=== PATIENT | female | born 1945 | race Caucasian/White ===

== ENCOUNTER → 2021-10-08 | Outpatient (CLI) | payer MEDICARE | END | disposition home or self-care (01) | LOC: RAH 10:49 | PROVIDERS: ATTEND Internal Medicine | DX: N64.4 Mastodynia (principal); M79.629 Pain in unspecified upper arm | CPT/HCPCS: 77066 ==

== ENCOUNTER 2025-03-15 11:02 | Emergency (ER) | payer MEDICARE ==
[~2025-03-15] VITALS: Ht 160 cm; Wt 52.6 kg
--- NOTE | 2025-03-15 11:21 | ERN ---
ED Note History of Present Illness Stated Complaint: LACERATION Chief Complaint: Laceration/Avulsion Time Seen by MD: 11:04 Dictation: PATIENT IS AN 79-YEAR-OLD FEMALE COMING IN TO THE EMERGENCY ROOM WITH HER WITH COMPLAINTS OF A SLIP FALL IN HER HOUSE. SHE STATES THEY HAVE A DOG INSIDE AND SHE SLIPPED ON URINE LANDED ON HER BILATERAL ELBOWS. ELBOW JUST HAS A SMALL ABRASION, RIGHT ELBOW HAS A LACERATION TO THE PROXIMAL FOREARM WITH THE ELBOW PAIN. NEUROVASCULAR CMS INTACT. SHE IS NOT ON ANY BLOOD THINNERS NO HEAD INJURY NO SPINE PAIN. STATES HER LAST TETANUS SHOT WAS LAST YEAR AFTER SHE HAD A FALL IN [place]. Allergies: Coded Allergies: No Known Drug Allergies (Unverified Allergy, Unknown, 03/15/25) Past Medical History Past Medical History: Hypertension Surgical History: Hysterectomy, Other History: Not Applicable RN Note Reviewed/Agreed w/PFSH: Yes Review of System Dictation CONSTITUTIONAL: NEGATIVE EXCEPT FOR HPI HEAD/FACE: NEGATIVE EXCEPT FOR HPI EENT: NEGATIVE EXCEPT FOR HPI RESPIRATORY: NEGATIVE EXCEPT FOR HPI GASTROINTESTINAL/ABDOMINAL: NEGATIVE EXCEPT FOR HPI GENITOURINARY: NEGATIVE EXCEPT FOR HPI MUSCULOSKELETAL: NEGATIVE EXCEPT FOR HPI RIGHT PROXIMAL FOREARM LACERATION WITH PAIN TO ELBOW. LEFT ELBOW ABRASION INTEGUMENTARY: NEGATIVE EXCEPT FOR HPI NEUROLOGICAL/PSYCH: NEGATIVE EXCEPT FOR HPI HEMATOLOGIC/LYMPHATIC: NEGATIVE EXCEPT FOR HPI ALL SYSTEMS NEGATIVE, EXCEPT NOTED ABOVE. 13 POINT REVIEW OF SYSTEMS ASSESSED AND ALL NEGATIVE EXCEPT FOR ABOVE. Initial Vital Sign VS Vital Signs Date Time Temp Pulse Resp B/P (MAP) Pulse Ox O2 Delivery O2 Flow Rate FiO2 03/15/25 11:05 97.5 85 16 176/93 99 0 03/15/25 11:09 Room Air* 21 Physical Exam Dictation VITAL SIGNS REVIEWED GENERAL APPEARANCE: ALERT, ORIENTED X 3, MODERATE ACUTE DISTRESS, WELL DEVELOPED, NOURISHED. HEAD AND FACE: NON-TRAUMATIC. NO HEAD INJURY EYES: PERRL, PINK CONJUNCTIVAS, EYELID NO TRAUMA, ANTERIOR CHAMBER WITH ARCUS SENILIS. EARS: PINNAS INTACT AND NO SIGNS OF TRAUMA OR ERYTHEMA EAR CANALS CLEAR AND NO DISCHARGE TM NO ERYTHEMA NOSE: NO DISCHARGE, NO BLEEDING. OROPHARYNX: MOUTH NORMAL, TONGUE PINK, PHARYNX CLEAR,NO ERYTHEMA, TONSILS NO EXUDATES, NO ABSCESSES NOTED, MUCOUS MEMBRANE MOIST NECK: SUPPLE, NON-TENDER, NO THYROMEGALY, NO MASSES, NO JVD, NO BRUITS BREAST:DEFERRED CHEST:NO TENDERNESS, NO CREPITUS, NO PARADOXICAL MOVEMENT, NO RETRACTIONS LUNGS:CLEAR, WELL-VENTILATED, SYMMETRIC, NO RALES, NO WHEEZING, NO RHONCHI, NO STRIDOR, GOOD BREATH SOUNDS BILATERALLY HEART: REGULAR RATE, REGULAR RHYTHM, NO MURMUR, NO GALLOPS VASCULAR: NO PERIPHERAL EDEMA, ABDOMEN: SOFT, POSITIVE BOWEL SOUNDS, NONDISTENDED, NO GUARDING, NONTENDER, NO REBOUND, NO MASSES NO HEPATOMEGALY, NO SPLENOMEGALY, NO LEMOS'S SIGN, NO HERNIAS. RECTAL: DEFERRED GENITAL: DEFERRED NEUROLOGICAL: NORMAL SPEECH, MOTOR FUNCTION INTACT, SENSORY FUNCTION INTACT MUSCULOSKELETAL: NECK NONTENDER, FULL RANGE OF MOTION, BACK NONTENDER, FULL RANGE OF MOTION, SPINE PAIN EXTREMITIES: TENDERNESS WITH FULL LOC TO RIGHT ELBOW APPROXIMATELY 5 CM LACERATION TO PROXIMAL FOREARM. ABRASION TO LEFT ELBOW WITH FULL RANGE OF MOTION SKIN: COLOR PINK, DRY, NO TURGOR, NO RASH, NO LACERATIONS, NO ABRASIONS, NO CONTUSIONS. LYMPHATIC: DEFERRED Results (Laboratory/Radiology) Laboratory/Radiology RIGHT ELBOW X-RAY NEGATIVE FOR FRACTURE Labs Reviewed?: Yes ED Course ED Course Orders Procedure Category Date Status Time Neomy PHA 03/15/25 Complete Sulf/Bacitra/Polymyxin 11:30 Tetanus,Diphtheria PHA 03/15/25 Complete Tox [Adult] (Diphther 11:30 Acetaminophen With PHA 03/15/25 Complete Codeine (Tylenol-Code 11:30 Lidocaine Hcl 1% 20ml PHA 03/15/25 Complete Vial (Lidocaine Hc 11:30 Elbow Comp 3+Vws Rt RAD 03/15/25 Resulted 11:16 Current Medications Medications (Trade) Dose Ordered Sig/Obdulia Route PRN Reason Start Time Stop Time Status Last Admin Dose Admin Acetaminophen/ Codeine Phosphate (TYLenol-coDEINE TAB) 2 tab ONCE ONCE PO 03/15/25 11:30 03/15/25 11:33 DC 03/15/25 12:45 Lidocaine HCl (Lidocaine HCl 1% 20ml Vial) 10 ml ONCE INJ 03/15/25 11:30 03/15/25 12:00 DC 03/15/25 12:40 Neomycin/ Polymyxin/ Bacitracin (Triple Antibiotic Ointment) 1 appl ONCE ONCE TP 03/15/25 11:30 03/15/25 11:33 DC 03/15/25 12:40 Tetanus/ Diphtheria Toxoids Adsorbed (DiphthERIA-teTANUS TOXOID [ADULT]/ DECAVAC) 0.5 ml ONCE ONCE IM 03/15/25 11:30 03/15/25 11:33 DC Vital Signs Date Time Temp Pulse Resp B/P (MAP) Pulse Ox O2 Delivery O2 Flow Rate FiO2 03/15/25 12:48 98.1 82 16 175/90 99 Room Air* 0 21 03/15/25 11:09 97.5 85 16 176/93 99 Room Air* 0 21 03/15/25 11:05 97.5 85 16 176/93 99 0 1430/PROCEDURE EXPLAINED TO PATIENT AND THEY AGREED TO PROCEED LACERATION WAS CLOSED, THEY ARE AWARE X-RAYS NEGATIVE WE WILL START PATIENT ON KEFLEX 1 G. WOUND CARE INSTRUCTIONS GIVEN Medical Decision Making MDM DECISION-MAKING BASED ON EMPIRIC TREATMENT FOR PAIN MANAGEMENT X-RAY OF RIGHT ELBOW WAS PERFORMED. X-RAYS NEGATIVE OF ELBOW, NO X-RAY OF LEFT ELBOW LACERATION WAS CLOSED KEFLEX WAS INITIATED PROPHYLACTICALLY DISTAL NEUROVASCULAR CMS INTACT TO RIGHT HAND AND WOUND CARE INSTRUCTIONS WERE PROVIDED TO PATIENT AND HER . Procedure Procedure Dictation: 1415/PROCEDURE EXPLAINED TO PATIENT SHE AGREED TO PROCEED 6.8 CURVILINEAR SKIN TEAR TO PROXIMAL RIGHT FOREARM IMMEDIATELY. 5 ML LIDOCAINE 1% PLAIN USED FOR LOCAL ANESTHESIA AREA WASH THOROUGHLY WITH WOUND CLEANSER MINIMAL DEBRIDEMENT REQUIRED SKIN TEAR CLOSED WITH 14 4-0 PROLENE SIMPLE INTERRUPTED SUTURES SINGLE-LAYER CLOSURE PATIENT TOLERATED WELL DISTAL NEUROVASCULAR CMS INTACT POST CLOSURE RIGHT HAND DX & DISP Disposition: Discharge Departure Impression: Primary Impression: Laceration of forearm, right Additional Impressions: Contusion of left elbow, initial encounter, Abrasion of left elbow, initial encounter, Fall Condition: Stable Scripts Acetaminophen with Codeine (Acetaminophen-Cod #3 Tablet) 300 Mg-30 Mg Tablet 1 TAB PO Q4H PRN for MODERATE TO SEVERE PAIN, #10 TAB 0 Refills Prov: LEVAR RONQUILLO NP 03/15/25 Cephalexin (Cephalexin) 500 Mg Tablet 1 TAB PO TID for 10 Days, #30 TAB 0 Refills Prov: LEVAR RONQUILLO [employer] 03/15/25 Additional Instructions: Follow-up with primary care provider in 1 to 2 days. Take medications as directed here in the emergency room. Okay to continue home medications unless otherwise discussed during your visit in the emergency room today. Return to your nearest emergency room if symptoms worsen or if there is no improvement. Call 911 if you need immediate assistance. Take Tylenol or Motrin [id number] as needed and if no contraindications are present. Increase oral hydration. A wound culture or urine culture was ordered here in the emergency room department please follow-up with primary care provider and advise them to get repeat ports from our facility. If you had any Migel wrap/splints that were applied here, please do not remove them until you see your primary care or specialty. Keep wound clean and dry. Apply triple antibiotic ointment/[id number] 3 times a day for five days to laceration. Take antibiotics as directed until gone. Sutures out in 10-14 days. Referrals: MARTIN MOORE MD (PCP) Time of Disposition: 14:32 I have reviewed the case, and I agree with, Diagnosis and Plan LEVAR RONQUILLO NP Mar 15, 2025 11:21
--- NOTE | 2025-03-15 12:24 | HMCIMG ---
EXAM: CR right elbow, 3 View. CLINICAL HISTORY: RIGHT PROXIMAL FOREARM ELBOW PAIN STATUS POST FALL WITH LACERATION COMPARISON: None provided. FINDINGS: BONES: No acute fracture or aggressive appearing osseous lesion. JOINTS: The joint spaces appear within normal limits. No dislocation. No radiographic evidence of a joint effusion. SOFT TISSUES: Soft tissue edema in the dorsal aspect of the proximal forearm. IMPRESSION: No acute osseous abnormality. /[place]
[2025-03-15] MEDS: NEOMY SULF/BACITRA/POLYMYXIN B 1 EACH PACKET TP ONE (12:40)
[2025-03-15] MEDS: LIDOCAINE HCL 1% 20 ML VIAL INJ SCH (12:40)
--- NOTE | 2025-03-15 14:34 | NUR ---
6.8 CM SKIN TEAR CLOSED WITH 16 SUTURES TO BE REMOVED 10-14 DAYS WOUND CLEAN DRY AND INTACT
[2025-03-15] MEDS ORDERED: CEPH500T PO (14:35)
[2025-03-15] MEDS ORDERED: ACET-2079 PO (14:35)
[2025-03-15 14:42] VITALS: BP 175/76; PULSE 88; RESP 16; TEMP 98.1; O2SAT 99
== END 2025-03-15 14:49 | disposition home or self-care (01) ==
LOC: EDH 11:02
DX: S51.811A Laceration without foreign body of right forearm, initial encounter (principal); S50.02XA Contusion of left elbow, initial encounter; I10 Essential (primary) hypertension; Z90.710 Acquired absence of both cervix and uterus; W01.0XXA Fall on same level from slipping, tripping and stumbling without subsequent striking against object, initial encounter; Y93.89 Activity, other specified; Y92.098 Other place in other non-institutional residence as the place of occurrence of the external cause; Y99.8 Other external cause status
CPT/HCPCS: 12002; 73080; 90714; 99284